=== PATIENT | female | born 1955 | race Caucasian/White ===

== ENCOUNTER → 2020-09-17 | Outpatient (CLI) | payer OTHER | LOC: HYPER 09-13 09:01 | PROVIDERS: ATTEND Emergency Medicine Emergency Medical Services | DX: T24.032A Burn of unspecified degree of left lower leg, initial encounter (principal); T31.0 Burns involving less than 10% of body surface; T24.031A Burn of unspecified degree of right lower leg, initial encounter; G99.0 Autonomic neuropathy in diseases classified elsewhere; R53.1 Weakness; R53.83 Other fatigue; G30.9 Alzheimer's disease, unspecified; R73.09 Other abnormal glucose; E66.9 Obesity, unspecified; E78.5 Hyperlipidemia, unspecified; E03.9 Hypothyroidism, unspecified; G89.29 Other chronic pain; G47.00 Insomnia, unspecified; G25.81 Restless legs syndrome; J45.909 Unspecified asthma, uncomplicated; M10.9 Gout, unspecified; F31.9 Bipolar disorder, unspecified; F02.80 Dementia in other diseases classified elsewhere, unspecified severity, without behavioral disturbance, psychotic disturbance, mood disturbance, and anxiety; F41.9 Anxiety disorder, unspecified; Z96.653 Presence of artificial knee joint, bilateral; Z85.72 Personal history of non-Hodgkin lymphomas; Z79.01 Long term (current) use of anticoagulants; Z68.42 Body mass index [BMI] 45.0-49.9, adult; Z86.711 Personal history of pulmonary embolism; X12.XXXA Contact with other hot fluids, initial encounter; Y93.89 Activity, other specified; Y92.818 Other transport vehicle as the place of occurrence of the external cause; Y99.8 Other external cause status ==